=== PATIENT | male | born 1935 | race Caucasian/White ===

== ENCOUNTER 2019-09-05 13:59 | Emergency (ER) | payer MEDICARE, OTHER ==
[2019-09-05] MEDS ORDERED: Iopamidol-370 76% 500 ML 1 ML ONE (14:59)
--- NOTE | 2019-09-05 18:17 | RAD ---
2 view chest: [09/05/2019] Comparison:None available HISTORY: Cough FINDINGS: Heart and mediastinal contours are grossly unremarkable. No pneumothorax or pleural fluid. No focal consolidation or alveolar edema. There is atherosclerotic calcification of the aortic arch. Multilevel anterior osteophyte formation noted within the mid/lower thoracic spine and upper juan mbar spine. IMPRESSION: No acute findings.
[2019-09-05 18:26] LABS: #Eosinphils 0.5 thou/uL (0.0-0.7); #Lymphocytes 1.9 thou/uL (1.20-3.40); #Neutrophils 4.1 thou/uL (1.40-6.50); %Basophils 0.5 % (0.0-1.0); %Eosinophils 6.2 % (0.0-10.0); %Lymphocytes 25.9 % (21.0-51.0); %Monocytes 13.2 % (0.0-10.0); %Neutrophils 54.2 % (42.0-75.0); Hemoglobin 11.7 g/dL (14.0-18.0); Mean Corpuscular HGB CONC 32.8 g/dL (32.0-36.0); Mean Corpuscular Hemoglobin 27.5 pg (27.0-31.0); Mean Corpuscular Volume 83.9 fL (78.0-98.0); Mean Platelet Volume 7.9 fL (7.4-10.4); Platelet Count 255 thou/uL (130-400); RBC Distribution Width 12.7 % (11.5-14.5); Red Blood Cell (RBC) Count 4.23 mill/uL (4.70-6.10); White Blood Cell (WBC) Count 7.5 thou/uL (4.8-10.8)
[2019-09-05 18:48] LABS: ALT (SGPT) 28 U/L (8-55); AST (SGOT) 30 U/L (5-34); Albumin 4.2 g/dL (3.4-4.8); Alkaline Phosphatase 94 U/L (40-110); Anion Gap 17 mmol/L (10-20); BUN (Urea Nitrogen) 31 mg/dL (8.4-25.7); Bilirubin, Total 0.9 mg/dL (0.2-1.2); Calc. Creatinine Clearance 0 mL/min (70-130); Calcium 9.6 mg/dL (7.8-10.44); Carbon Dioxide 26 mmol/L (23-31); Chloride 106 mmol/L (98-107); Estimated GFR-MDRD 43; Globulin 2.9 g/dL (2.4-3.5); Glucose 127 mg/dL (83-110); Potassium 5.5 mmol/L (3.5-5.1); Protein, Total 7.1 g/dL (5.8-8.1); Sodium 143 mmol/L (136-145)
--- NOTE | 2019-09-05 21:46 | CT ---
CT angiogram chest: 09/05/2019 COMPARISON: None HISTORY: Cough TECHNIQUE: Axial CT imaging at 2.5 mm intervals through the chest with IV contrast using CT angiogram protocol. Coronal and sagittal 3-D reformatted imaging obtained. FINDINGS: There is no pneumothorax on either side. No pleural, pericardial, or mediastinal fluid is n oted. No axillary, mediastinal, or hilar lymphadenopathy is noted. The imaged upper abdomen demonstrates no acute findings. There are scattered emphysematous changes noted. There is no discrete/dominant pulmonary parenchymal mass lesion or nodule noted. There are basilar fibrotic changes inferiorly/posteriorly on the right. No endobronchial lesion is evident. There is a suture line within the inferior aspect of the left lower lobe. There is artifact which slightly limits detailed assessment of the pulmonary arterial vasculature sup plying the left lower lobe. This makes it difficult to fully exclude small volume pulmonary embolism within the anterior inferior left lower lobe on axial images 54-59 and sagittal images 41 th rough 44 of series 400. Findings in this region are favored to represent artifact over small volume left lower lobe pulmonary embolism. Evaluation for pulmonary arterial embolism appears otherwise unre markable. Review of the osseous structures demonstrates no worrisome lytic or blastic bone lesion. IMPRESSION: Chronic/postoperative changes as detailed above. Hypodensity is seen in the region of the distal pulmonary arterial branches supplying the left lower lobe. While very small volume acute pulmonary arterial embolism cannot be fully excluded, these findings are favored to represent motion artifact. No central or large volume pulmonary arterial embolism is seen.
== END 2019-09-05 23:36 | disposition home or self-care (01) ==
LOC: ERS 13:59
DX: R05 Cough (principal); I10 Essential (primary) hypertension; K21.9 Gastro-esophageal reflux disease without esophagitis; E78.00 Pure hypercholesterolemia, unspecified; N40.0 Benign prostatic hyperplasia without lower urinary tract symptoms; Z87.891 Personal history of nicotine dependence; Z79.899 Other long term (current) drug therapy; Z79.82 Long term (current) use of aspirin
CPT/HCPCS: 36415; 71046; 71275; 80053; 83880; 84484; 85025; 85379; 93005; 96360; Q9967